=== PATIENT | female | born 1975 | race Caucasian/White ===

== ENCOUNTER 2019-04-03 13:24 | Emergency (ER) | payer MEDICAID, OTHER ==
[2019-04-03 13:40] VITALS: TEMP 98.8
[2019-04-03] MEDS ORDERED: Sodium Chloride 0.9% 1,000 ML IV STA (13:56)
[2019-04-03 15:06] LABS: BASO # 0.1 K/uL (0.0-0.2); BASO % 1.1 % (0.0-2.0); EOS # 0.1 K/uL (0.0-0.7); EOS % 1.6 % (0.0-4.0); LYMPH # 1.8 K/uL (1.0-4.3); LYMPH % 28.2 % (20.0-40.0); MEAN CELL VOLUME 84.1 fL (81.0-99.0); MEAN CORPUSCULAR HEMOGLOBIN 28.7 pg (27.0-31.0); MEAN CORPUSCULAR HGB CONC 34.1 g/dL (33.0-37.0); MEAN PLATELET VOLUME 11.2 fL (7.2-11.7); MONO # 0.5 K/uL (0.0-0.8); MONO % 7.1 % (0.0-10.0); NRBC % 0.1 % (0.0-2.0); RBC 4.52 Mil/uL (3.80-5.20); WHITE BLOOD COUNT 6.4 K/uL (4.8-10.8)
[2019-04-03 15:14] LABS: INR 1.1; PARTIAL THROMBOPLASTIN TIME 33.8 SECONDS (21-34); PROTHROMBIN TIME 11.5 SECONDS (9.7-12.2)
[2019-04-03 15:24] LABS: ALB/GLOB RATIO 1.5 (1.0-2.1); ALBUMIN 4.1 g/dL (3.5-5.0); ALT/SGPT 18 U/L (9-52); AST/SGOT 21 U/L (14-36); BLOOD UREA NITROGEN 13 mg/dL (7-17); CALCIUM 8.8 mg/dl (8.6-10.4); GFR NON-AFRICAN AMERICAN > 60
--- NOTE | 2019-04-03 15:56 | C.PDOC ---
History Of Present Illness 43 y/o female presents to ED stating that 2 months ago, she had surgery on her left foot and ankle after she got an accident. States that the outside disc pad plate filler took off the splint and put on ortho boot. She states last week she had more pain and foot was getting more swollen so she went back, had negative x-ray and was put on ryan wrap. They told her that everything is fine. Patient states that she took Motrin but pain persists. Couldnt sleep last night due to the pain so she come in to the ER today to get evaluated. Time Seen by Provider: 04/03/19 13:49 Chief Complaint (Nursing): Lower Extremity Problem/Injury History Per: Patient History/Exam Limitations: no limitations Onset/Duration Of Symptoms: Days Current Symptoms Are (Timing): Still Present Past Medical History Reviewed: Historical Data, Nursing Documentation, Vital Signs Vital Signs: Last Vital Signs Temp 98.8 F 04/03/19 13:35 Pulse 78 04/03/19 13:35 Resp 17 04/03/19 13:35 BP 96/60 L 04/03/19 13:35 Pulse Ox 98 04/03/19 13:35 Primary Care Provider: Wenceslao Vick - Medical History PMH: Anxiety, Asthma, Bipolar Disorder, Bronchitis, Depression, Migraine, Seizures Surgical History: Cholecystectomy - [facility] NEBULIZER THERAPY (09/27/14) Family History: States: Diabetes - Social History Hx Tobacco Use: Yes Hx Alcohol Use: No Hx Substance Use: Yes - Immunization History Hx Tetanus Toxoid Vaccination: Yes Hx Influenza Vaccination: Yes Hx Pneumococcal Vaccination: No Review Of Systems Except As Marked, All Systems Reviewed And Found Negative. Constitutional: Negative for: Fever, Chills Musculoskeletal: Positive for: Foot Pain (left) Neurological: Negative for: Weakness, Numbness Physical Exam - Physical Exam Appears: Non-toxic, No Acute Distress Skin: Warm, Dry Head: Normacephalic Eye(s): bilateral: Normal Inspection Oral Mucosa: Moist Neck: Normal ROM, Supple Extremity: Calf Tenderness (but no swelling), Capillary Refill (<2 sec), No Deformity, Swelling (left LE slightly swollen on the dorsum of the foot and medial malleolus), Other (has post-operating scars on left foot, no signs of infection, no erythema or warmth) Extremity: Bilateral: Normal ROM Pulses: Left Dorsalis Pedis: Normal, Right Dorsalis Pedis: Normal Neurological/Psych: Oriented x3, Normal Speech, Normal Motor, Normal Sensation ED Course And Treatment - Laboratory Results Result Diagrams: 04/03/19 15:02 04/03/19 15:02 Lab Results: PT 11.5 SECONDS (9.7-12.2) 04/03/19 15:02 INR 1.1 04/03/19 15:02 APTT 33.8 SECONDS (21-34) 04/03/19 15:02 Total Bilirubin 0.5 mg/dL (0.2-1.3) 04/03/19 15:02 AST 21 U/L (14-36) 04/03/19 15:02 ALT 18 U/L (9-52) 04/03/19 15:02 Alkaline Phosphatase 46 U/L (38-126) 04/03/19 15:02 Total Protein 6.8 g/dL (6.3-8.3) 04/03/19 15:02 Albumin 4.1 g/dL (3.5-5.0) 04/03/19 15:02 Globulin 2.7 gm/dL (2.2-3.9) 04/03/19 15:02 Albumin/Globulin Ratio 1.5 (1.0-2.1) 04/03/19 15:02 O2 Sat by Pulse Oximetry: 98 (RA) Pulse Ox Interpretation: Normal Progress Note: Labs sent. Duplex scan ordered to rule out DVT, which was negative. Labs were normal. Patient discharged home on tramadol and instructed to follow up with her disc pad plate filler. Disposition - Disposition Disposition: HOME/ ROUTINE Disposition Time: 15:54 Condition: STABLE Additional Instructions: Follow up with your PMD and [employer] within 1-2 days. Return to ED if feel worse. 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 - Scribe Statement The provider has reviewed the documentation as recorded by the Scribe Diamante Frankel All medical record entries made by the Scribe were at my direction and personally dictated by me. I have reviewed the chart and agree that the record accurately reflects my personal performance of the history, physical exam, medical decision making, and the department course for this patient. I have also personally directed, reviewed, and agree with the discharge instructions and disposition.
[2019-04-03 16:05] VITALS: BP 109/71; PULSE 65; RESP 18
[2019-04-03 17:27] VITALS: O2SAT 98
--- NOTE | 2019-04-03 22:30 | VASCLAB ---
Date of service: 04/03/2019 PROCEDURE: Left Lower Extremity Venous Duplex Exam. HISTORY: s/p ankle/foot surgery, swelling/ pain PRIORS: None. TECHNIQUE: Left common femoral, femoral, popliteal and posterior tibial, peroneal and great saphenous veins were evaluated. Flow was assessed with color Doppler, compressibility, assessment of phasic flow and augmentation response. Report prepared by Carlton Hurd, FABIOLA, RVT FINDINGS: LEFT: 1. Common Femoral Vein: 1.1. Compressibility - Fully compressible: Thrombus - None : Flow - Phasic: Augmentation -Normal: Reflux - None. 2. Femoral Vein: 2.1. Compressibility - Fully compressible: Thrombus - None: Flow - Phasic: Augmentation -Normal: Reflux - None. 3. Popliteal Vein: 3.1. Compressibility - Fully compressible: Thrombus - None: Flow - Phasic: Augmentation -Normal: Reflux - None. 4. Posterior Tibial Vein: 4.1. Compressibility - Fully compressible: Thrombus - None: Flow - Phasic: Augmentation -Normal: Reflux - None. 5. Peroneal Vein: 5.1. Compressibility - Fully compressible: Thrombus - None: Flow - Phasic: Augmentation -Normal: Reflux - None. 6. Great Saphenous Vein: 6.1. Compressibility - Fully compressible: Thrombus - None: Flow - Phasic: Augmentation - Normal: Reflux - None. OTHER FINDINGS: IMPRESSION: No evidence of deep or superficial vein thrombosis of the left lower extremity with excellent venous flow. Normal valve function noted of the left side. Normal venous flow noted in the right common femoral vein.
== END 2019-04-03 16:28 | disposition home or self-care (01) ==
LOC: C.ER 13:24
DX: M79.672 Pain in left foot (principal); Z98.890 Other specified postprocedural states
CPT/HCPCS: 80053; 85025; 85610; 85730; 93971; 96360; 99284; J7030